=== PATIENT | female | born 1950 ===

== ENCOUNTER 2016-10-30 19:52 | Emergency (ER) | payer SELFPAY ==
[2016-10-30 20:03] VITALS: BP 130/82; PULSE 88; RESP 18; O2SAT 98
--- NOTE | 2016-10-30 20:24 | ED PDOC ---
HPI: Female Pain Time Seen by Provider: 10/30/16 20:10 Chief Complaint (Nursing): Female Genitourinary Chief Complaint (Provider): dysuria History Per: Patient History/Exam Limitations: no limitations Onset/Duration Of Symptoms: Hrs Current Symptoms Are (Timing): Better Quality Of Discomfort: Burning, Pressure, "Pain" Additional History Per: Patient Additional Complaint(s): 66 y/o female presents with dysuria x 5 hours. Associated increased urgency, frequency. Patient noted blood when urinating, which improved after drinking a lot of water. Patient unsure if blood coming from urine or vaginal area. Denies fever, nausea/vomiting, back pain, abdominal pain. Past Medical History Reviewed: Historical Data, Nursing Documentation, Vital Signs Vital Signs: Last Vital Signs Temp 100.1 F H 10/30/16 19:59 Pulse 88 10/30/16 19:59 Resp 18 10/30/16 19:59 BP 130/82 10/30/16 19:59 Pulse Ox 98 10/30/16 19:59 - Medical History PMH: No Chronic Diseases - Surgical History Surgical History: No Surg Hx - Family History Family History: States: Unknown Family Hx - Living Arrangements Living Arrangements: With Family - Social History Current smoker - smoking cessation education provided: No Ex-Smoker (has not smoked in the last 12 months): Yes - Home Medications Home Medications: Ambulatory Orders Medication Instructions Recorded Ciprofloxacin HCl [Cipro] 500 mg PO BID #13 tab 10/30/16 - Allergies Allergies/Adverse Reactions: Allergies Allergy/AdvReac Type Severity Reaction Status Date / Time No Known Allergies Allergy Verified 10/30/16 19:59 Review of Systems ROS Statement: Except As Marked, All Systems Reviewed And Found Negative Genitourinary Female: Positive for: Dysuria, Hematuria Physical Exam - Reviewed Nursing Documentation Reviewed: Yes Vital Signs Reviewed: Yes - Physical Exam Appears: Positive for: Well, Non-toxic, No Acute Distress Head Exam: Positive for: ATRAUMATIC, NORMAL INSPECTION, NORMOCEPHALIC Skin: Positive for: Normal Color Eye Exam: Positive for: Normal appearance ENT: Positive for: Normal ENT Inspection Cardiovascular/Chest: Positive for: Regular Rate, Rhythm Respiratory: Positive for: Normal Breath Sounds Gastrointestinal/Abdominal: Positive for: Normal Exam Pelvic Exam: Positive for: External Exam Normal, Speculum Exam Normal, Other ( exam chaperoned by [employer] process technician). Negative for: Active Bleeding, Blood Back: Positive for: Normal Inspection Extremity: Positive for: Normal ROM Neurologic/Psych: Positive for: Alert, Oriented - ECG O2 Sat by Pulse Oximetry: 98 - Progress ED Course And Treament: urine Patient educated on findings, discharged with rx Cipro (dose given in ED). Advised follow up PMD 2-3 days. Return to ED for worsening/concerning symptoms. Disposition - Clinical Impression Clinical Impression: Urinary tract infection - Patient ED Disposition Is Patient to be Admitted: No Counseled Patient/Family Regarding: Studies Performed, Diagnosis, Need For Followup, Rx Given - Disposition [facility]errals: [facility] [Outside] Disposition: Routine/Home Disposition Time: 22:16 Condition: IMPROVED Prescriptions: Ciprofloxacin HCl [Cipro] 500 mg PO BID #13 tab Instructions: Urinary Tract Infection in Women (ED)
[2016-10-30 20:33] VITALS: TEMP 98.4
[2016-10-30 21:29] LABS: SQUAMOUS EPITHIAL < 1 /hpf (0-5); URINE BACTERIA OCC (<OCC); URINE BILIRUBIN NEGATIVE (NEGATIVE); URINE BLOOD MODERATE (NEGATIVE); URINE CLARITY SLIGHTY-CLOUDY (Clear); URINE COLOR YELLOW (YELLOW); URINE GLUCOSE (UA) NEG (Normal); URINE LEUKOCYTE ESTERASE LARGE Leu/uL (Negative); URINE NITRATE NEGATIVE (NEGATIVE); URINE PROTEIN NEGATIVE (NEGATIVE); URINE UROBILINOGEN 0.2-1.0 mg/dL (0.2-1.0)
== END 2016-10-30 22:38 | disposition home or self-care (01) ==
LOC: H.ER 19:52
DX: N39.0 Urinary tract infection, site not specified (principal); Z87.891 Personal history of nicotine dependence